=== PATIENT | female | born 1990 | race Caucasian/White ===

== ENCOUNTER 2022-04-10 22:50 | Emergency (ER) | payer OTHER ==
[2022-04-10 23:03] VITALS: BP 140/94
[2022-04-11] MEDS ORDERED: CLOTRIMAZOLE 1% CREAM 15 GM TUBE TOP STA (02:01)
--- NOTE | 2022-04-11 02:04 | ED Physician Documentation ---
History of Present Illness - Stated complaint Stated Complaint: BELLY BUTTON INFECTION - Chief complaint Chief Complaint: General - History obtained from History obtained from: Patient - Additonal information Additional information: Patient is a 32-year-old female presenting for evaluation of redness, burning irritation and abnormal drainage from the bellybutton that she has noticed today. She has had at times difficulty with keeping the bellybutton dry and has been advised in the past to dry the area with hydrogen peroxide. Today she has been feeling discomfort and describes it as a burning feeling. She has noticed redness. She has been also noted some clear drainage. She denies fever, chest pain, abdominal pain, vomiting, diarrhea. She is not diabetic. Review of Systems Constitutional: denies: Fever Nose: denies: Congestion Cardiac: denies: Chest pain / pressure Respiratory: denies: Dyspnea GI: denies: Vomiting, Diarrhea Skin: reports: Rash Musculoskeletal: denies: Back pain PD PAST MEDICAL HISTORY - Present Medications Home Medications: Ambulatory Orders Medication Instructions Recorded Confirmed Clotrimazole 1% Cream [Lotrimin 1% 15 gm TOP BID #15 gm 04/11/22 Cream] - Allergies Allergies/Adverse Reactions: Allergies Allergy/AdvReac Type Severity Reaction Status Date / Time enoxaparin [From Lovenox] Allergy Rash Verified 04/10/22 23:03 PD ED PE NORMAL - General General: Alert and oriented X 3, No acute distress, Well developed/nourished - HEENT HEENT: Atraumatic, Moist mucous membranes - Neck Neck: Supple, no meningeal sign - Respiratory Respiratory: No respiratory distress - Abdomen Abdomen: Normal bowel sounds, Soft, Non tender, Non distended, Other (Beefy erythema inside navel, no abnormal drainage noted, No swelling, no fluctuance) - Derm Derm: Warm and dry - Extremities Extremities: No edema - Neuro Neuro: Normal speech - Psych Psych: Normal mood Results - Vitals Vitals: Vital Signs - 24 hr 04/10/22 22:59 Temperature 36.3 C L Heart Rate 81 Respiratory 18 Rate Blood Pressure 140/94 H O2 Saturation 98 Oxygen O2 Source Room air PD MEDICAL DECISION MAKING - ED course ED course: Patient with a rash and burning sensation inside navel. Exam suggest candidal infection. Patient is overall well-appearing with no abdominal tenderness. Vital signs are stable. No abnormal drainage noted on my exam. We will have patient use Lotrimin twice daily and have close follow-up with primary care doctor. Patient was again advised on keeping the area clean and dry. She is aware of return precautions. Departure - Departure Disposition: 01 Home, Self Care Clinical Impression: Cutaneous candidiasis Condition: Stable Instructions: ED Candidiasis Cutaneous Prescriptions: Clotrimazole 1% Cream [Lotrimin 1% Cream] 15 gm TOP BID #15 gm Comments: You have been evaluated for a rash to your umbilical region.Aced on its appearance I am concerned that it is caused by yeast.I am going to start you on a topical ointment to apply to the area twice a day for 2 weeks. Please also follow-up with your primary care doctor.Please otherwise try and keep the area clean and dry.Return to the emergency department if you have Any worsening symptoms such as increased redness, pain or abnormal drainage. I sent your prescription to [facility] in [place]. Discharge Date/Time: 04/11/22 02:12
== END 2022-04-11 02:12 | disposition home or self-care (01) ==
LOC: ED 22:50
DX: B37.2 Candidiasis of skin and nail (principal)
CPT/HCPCS: 99282

== ENCOUNTER 2022-10-21 08:00 | Outpatient (CLI) | payer OTHER | END 2022-10-21 23:59 | disposition home or self-care (01) | LOC: LAB.N 08:00 | PROVIDERS: ATTEND Nurse Practitioner | DX: J02.9 Acute pharyngitis, unspecified (principal) | CPT/HCPCS: 87070 ==